=== PATIENT | male | born 1960 | race Two or more races ===

== ENCOUNTER 2017-12-11 09:40 | Emergency (ER) | payer OTHER ==
[2017-12-11 10:49] LABS: INFLUENZA A PATIENT NEGATIVE (NEGATIVE); INFLUENZA B PATIENT NEGATIVE (NEGATIVE); OBC FLU VALID
== END 2017-12-11 11:33 | disposition home or self-care (01) ==
LOC: ER 09:40
DX: R50.9 Fever, unspecified (principal); R05 Cough; J34.89 Other specified disorders of nose and nasal sinuses; J02.9 Acute pharyngitis, unspecified
CPT/HCPCS: 71046; 87804; 87804-59; 99285-25

== ENCOUNTER 2020-03-04 12:03 | Emergency (ER) | payer BC ==
[~2020-03-04] VITALS: Ht 162.6 cm; Wt 68.0 kg
[~2020-03-04 12:03] MED LIST: GLYB1.252 PO; INSU100V8 SQ; METF500T PO; OSEL75CA PO; PANT40TA77 PO
[2020-03-04 12:17] VITALS: BP 135/89
[2020-03-04] MEDS ORDERED: IV NORMAL SALINE 1000ML BAG 1,000 ML IV ONE (12:30)
[2020-03-04] MEDS ORDERED: POLY10DR3 EACHEYE (12:31)
--- NOTE | 2020-03-04 12:32 | PHYS DOC ---
Past Medical History Past Medical History: Hypertension Past Surgical History: No Surgical History Smoking Status: Never Smoker Alcohol Use: None Drug Use: None General Adult EDM: Chief Complaint: EYE PROBLEMS HPI: HPI: Patient is a 59 year old male who presents with for the last 3 days eye redness and itching with white, yellow discharge. No changes in vision, fever, nausea, vomiting, headache. Patient states that started in the left eye and then went to the right eye. Review of Systems: Review of Systems: HENT: Denies nasal congestion or sore throat. Bilateral red eyes with discharge and itching. [] Heart Score: Risk Factors: Risk Factors: DM, Current or recent (<one month) smoker, HTN, HLP, family history of CAD, obesity. Risk Scores: Score 0 - 3: 2.5% MACE over next 6 weeks - Discharge Home Score 4 - 6: 20.3% MACE over next 6 weeks - Admit for Clinical Observation Score 7 - 10: 72.7% MACE over next 6 weeks - Early Invasive Strategies Current Medications: Current Medications Medications (Trade) Dose Ordered Sig/Otoniel Start Time Stop Time Status Last Admin Dose Admin Sodium Chloride 1,000 ml @ 1,000 mls/hr 1X ONCE 03/04/20 12:30 03/04/20 13:29 UNV Allergies: Allergies: Allergies Coded Allergies Type Severity Reaction Last Updated Verified No Known Drug Allergies 06/22/19 No Physical Exam: PE: Constitutional: Well developed, well nourished, no acute distress, non-toxic appearance. [] HENT: Normocephalic, atraumatic, bilateral external ears normal, oropharynx moist, no oral exudates, nose normal. [] Eyes: PERRLA, EOMI, conjunctiva redness, no discharge. [] Neck: Normal range of motion, no tenderness, supple, no stridor. [] Cardiovascular:Heart rate regular rhythm, no murmur [] Lungs & Thorax: Bilateral breath sounds clear to auscultation [] Abdomen: Bowel sounds normal, soft, no tenderness, no masses, no pulsatile masses. [] Skin: Warm, dry, no erythema, no rash. [] Back: No tenderness, no CVA tenderness. [] Extremities: No tenderness, no cyanosis, no clubbing, ROM intact, no edema. [] Neurologic: Alert and oriented X 3, normal motor function, normal sensory function, no focal deficits noted. [] Psychologic: Affect normal, judgement normal, mood normal. [] EKG: EKG: [] Radiology/Procedures: Radiology/Procedures: [] Course & Med Decision Making: Course & Med Decision Making Pertinent Labs and Imaging studies reviewed. (See chart for details) Bilateral redness of the conjunctiva. PERRLA. No vision loss. No discharge seen at this time but patient states that he cleaned all the discharge off of his eyes before coming. Alert and oriented. Speaks in full clear sentences. Denies any pain at this time. States his eyes are just itchy and have discharge. Denies any injury to the eyes or getting anything in his eyes. No pain with movement of the eyes. [] Dragon Disclaimer: Dragon Disclaimer: This electronic medical record was generated, in whole or in part, using a voice recognition dictation system. Departure Departure Impression: Primary Impression: Conjunctivitis Qualified Codes: H10.33 - Unspecified acute conjunctivitis, bilateral Disposition: HOME, SELF-CARE Condition: STABLE Referrals: NO PCP (PCP) Patient Instructions: Conjunctivitis (Viral and Bacterial) Additional Instructions: Use eye drops as prescribed. Remember this can be very contagious. Wash your hands frequently and do not touch the tip of medication to your eyes. Scripts Polymyxin B Sulf/Trimethoprim (POLYMYXIN B-TMP EYE DROPS) 10 Ml Drops 1 DROP EACHEYE QID for 7 Days, #10 ML 0 Refills Prov: JUAN PRETTY APRN 03/04/20 JUAN PRETTY APRN March 04, 2020 12:32
== END 2020-03-04 12:38 | disposition home or self-care (01) ==
LOC: ER 12:03
DX: H10.33 Unspecified acute conjunctivitis, bilateral (principal); R11.2 Nausea with vomiting, unspecified; R50.9 Fever, unspecified; L29.9 Pruritus, unspecified; I10 Essential (primary) hypertension
CPT/HCPCS: 99283

== ENCOUNTER 2020-03-07 02:47 | Emergency (ER) | payer BC ==
[~2020-03-07] VITALS: Ht 154.9 cm; Wt 68.0 kg
[~2020-03-07 02:47] MED LIST changes: +POLY10DR3 EACHEYE
[2020-03-07 02:58] VITALS: BP 154/89
[2020-03-07] MEDS ORDERED: TETRACAINE 0.5% OPHTH SOLUTION 4ML BOTTLE. ONE (03:12)
[2020-03-07] MEDS ORDERED: ERYTHROMYCIN 0.5% OPHTH OINTMENT 1GM TUBE. ONE (03:15)
--- NOTE | 2020-03-07 03:18 | PHYS DOC ---
Past Medical History Past Medical History: Diabetes-Type II, Hypertension Past Surgical History: No Surgical History Smoking Status: Never Smoker Alcohol Use: None Drug Use: None General Adult EDM: Chief Complaint: EYE PROBLEMS HPI: HPI: Patient is a 59-year-old Yi male who presents with eye irritation. He states he was seen a few days ago started on antibiotic drops for left eye redness now both are bothering him. He states that it feels like there is something in his left eye. He denies any loss of visual acuity. [] Review of Systems: Review of Systems: Constitutional: Denies fever or chills. [] Eyes: Per HPI. [] HENT: Denies nasal congestion or sore throat. [] Respiratory: Denies cough or shortness of breath. [] Cardiovascular: Denies chest pain or edema. [] GI: Denies abdominal pain, nausea, vomiting, bloody stools or diarrhea. [] : Denies dysuria. [] Musculoskeletal: Denies back pain or joint pain. [] Integument: Denies rash. [] Neurologic: Denies headache, focal weakness or sensory changes. [] Endocrine: Denies polyuria or polydipsia. [] Lymphatic: Denies swollen glands. [] Psychiatric: Denies depression or anxiety. [] Heart Score: Risk Factors: Risk Factors: DM, Current or recent (<one month) smoker, HTN, HLP, family history of CAD, obesity. Risk Scores: Score 0 - 3: 2.5% MACE over next 6 weeks - Discharge Home Score 4 - 6: 20.3% MACE over next 6 weeks - Admit for Clinical Observation Score 7 - 10: 72.7% MACE over next 6 weeks - Early Invasive Strategies Current Medications: Current Medications Medications (Trade) Dose Ordered Sig/Otoniel Start Time Stop Time Status Last Admin Dose Admin Erythromycin (Romycin) 1 inch STK-MED ONCE 03/07/20 03:15 03/07/20 03:15 DC Tetracaine HCl (Tetracaine) 40 drop STK-MED ONCE 03/07/20 03:12 03/07/20 03:13 DC Allergies: Allergies: Allergies Coded Allergies Type Severity Reaction Last Updated Verified No Known Drug Allergies 06/22/19 No Physical Exam: PE: Constitutional: Well developed, well nourished, no acute distress, non-toxic appearance. [] HENT: Normocephalic, atraumatic, bilateral external ears normal, oropharynx moist, no oral exudates, nose normal. [] Eyes: Both eyes are injected left greater than right no pain with ocular compression in either eye.. [] Neck: Normal range of motion, no tenderness, supple, no stridor. [] Cardiovascular:Heart rate regular rhythm, no murmur [] Neurologic: Alert and oriented X 3, normal motor function, normal sensory function, no focal deficits noted. [] Psychologic: Anxious l. [] Current Patient Data: Vital Signs: Vital Signs Date Time Temp Pulse Resp B/P (MAP) Pulse Ox O2 Delivery O2 Flow Rate FiO2 03/07/20 02:58 97.4 85 16 154/89 (110) 99 Room Air 97.4 EKG: EKG: [] Radiology/Procedures: Radiology/Procedures: [] Course & Med Decision Making: Course & Med Decision Making Pertinent Labs and Imaging studies reviewed. (See chart for details) [] Dragon Disclaimer: Dragon Disclaimer: This electronic medical record was generated, in whole or in part, using a voice recognition dictation system. Departure Departure Impression: Primary Impression: Conjunctivitis Qualified Codes: H10.33 - Unspecified acute conjunctivitis, bilateral Disposition: HOME, SELF-CARE Condition: STABLE Referrals: NO PCP (PCP) Patient Instructions: Allergic Conjunctivitis Scripts Naphazoline Hcl/Pheniramine (NAPHCON-A EYE DROPS) 15 Ml Drops 15 ML OU Q8HRS for conjunctivitis for 5 Days, #2 DROP Prov: LILY ROGEL DO 03/07/20 LILY ROGEL DO March 07, 2020 03:18
[2020-03-07] MEDS ORDERED: NAPH15DR60 OU (03:25)
[2020-03-07] MEDS ORDERED: TETRACAINE 0.5% OPHTH SOLUTION 4ML BOTTLE. OS ONE (03:30)
[2020-03-07] MEDS ORDERED: ERYTHROMYCIN 0.5% OPHTH OINTMENT 1GM TUBE. OS ONE (03:30)
== END 2020-03-07 03:30 | disposition home or self-care (01) ==
LOC: ER 02:47
DX: H10.33 Unspecified acute conjunctivitis, bilateral (principal); E11.9 Type 2 diabetes mellitus without complications; I10 Essential (primary) hypertension
CPT/HCPCS: 99283

== ENCOUNTER 2020-03-13 12:40 | Emergency (ER) | payer BC ==
[~2020-03-13] VITALS: Ht 165.1 cm; Wt 68.2 kg
[~2020-03-13 12:40] MED LIST changes: +NAPH15DR60 OU
[2020-03-13 12:42] VITALS: BP 123/77
[2020-03-13] MEDS ORDERED: KETO5DRO4 EACHEYE (13:14)
[2020-03-13] MEDS ORDERED: OFLO5DRO7 EACHEYE (13:14)
--- NOTE | 2020-03-13 13:15 | PHYS DOC ---
Past Medical History Past Medical History: Diabetes-Type II, Hypertension Past Surgical History: No Surgical History Smoking Status: Never Smoker Alcohol Use: None Drug Use: None General Adult EDM: Chief Complaint: EYE PROBLEMS HPI: HPI: Patient is a 59 year old male with history of diabetes type 2, hypertension, who presents to the ED today complaining of bilateral eye redness with clear drainage, symptoms began 1 month ago. Patient reports this is his third visit in the ED. He states he has been tried on 2 different antibiotics with no relief. Patient denies any vision loss. 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 Review of Systems: Review of Systems: Constitutional: Denies fever or chills. [] Eyes: Reports bilateral eye redness. Denies change in visual acuity. [] HENT: Denies nasal congestion or sore throat. [] Respiratory: Reports cough, denies shortness of breath. [] Cardiovascular: Denies chest pain or edema. [] GI: Denies abdominal pain, nausea, vomiting, bloody stools or diarrhea. [] : Denies dysuria. [] Musculoskeletal: Denies back pain or joint pain. [] Integument: Denies rash. [] Neurologic: Denies headache, focal weakness or sensory changes. [] Psychiatric: Denies depression or anxiety. [] Heart Score: Risk Factors: Risk Factors: DM, Current or recent (<one month) smoker, HTN, HLP, family history of CAD, obesity. Risk Scores: Score 0 - 3: 2.5% MACE over next 6 weeks - Discharge Home Score 4 - 6: 20.3% MACE over next 6 weeks - Admit for Clinical Observation Score 7 - 10: 72.7% MACE over next 6 weeks - Early Invasive Strategies Allergies: Allergies: Allergies Coded Allergies Type Severity Reaction Last Updated Verified No Known Drug Allergies 06/22/19 No Physical Exam: PE: Constitutional: Well developed, well nourished, no acute distress, non-toxic appearance. [] HENT: Normocephalic, atraumatic, bilateral external ears normal, oropharynx moist, no oral exudates, nose normal. [] Eyes: PERRLA, EOMI, bilateral conjunctiva mildly injected left worse than right. Neck: Normal range of motion, no tenderness, supple, no stridor. [] Cardiovascular:Heart rate regular rhythm, no murmur [] Lungs & Thorax: Patient noted for dry cough. Bilateral breath sounds clear to auscultation [] Abdomen: Bowel sounds normal, soft, no tenderness, no masses, no pulsatile masses. [] Skin: Warm, dry, no erythema, no rash. [] Back: No tenderness, no CVA tenderness. [] Extremities: No tenderness, no cyanosis, no clubbing, ROM intact, no edema. [] Neurologic: Alert and oriented X 3, normal motor function, normal sensory function, no focal deficits noted. [] Psychologic: Affect normal, judgement normal, mood normal. [] Current Patient Data: Vital Signs: Vital Signs Date Time Temp Pulse Resp B/P (MAP) Pulse Ox O2 Delivery O2 Flow Rate FiO2 03/13/20 12:42 97.6 93 14 123/77 (92) 97 Room Air 97.6 EKG: EKG: [] Radiology/Procedures: Radiology/Procedures: [] Course & Med Decision Making: Course & Med Decision Making Pertinent Labs and Imaging studies reviewed. (See chart for details) This is a 59-year-old male patient presenting to the ED today with bilateral eye redness that is been going on for 1 month. Patient has been treated for conjunctivitis twice in the last month with no improvement. He is noted to have a dry cough. We tested him for COVID19 to rule out possibility of this being COVID 19 eye symptoms. He will be discharged with ofloxacin eyedrops. Also given Zaditor eyedrops. Provided ophthalmology for follow-up. Johnie Disclaimer: Johnie Disclaimer: This electronic medical record was generated, in whole or in part, using a voice recognition dictation system. Departure Departure Impression: Primary Impression: Conjunctivitis Qualified Codes: H10.33 - Unspecified acute conjunctivitis, bilateral Additional Impression: Cough Disposition: 01 HOME, SELF-CARE Condition: STABLE Referrals: NO PCP (PCP) MISAEL FARFAN MD follow up in the next 7 days Patient Instructions: Bacterial Conjunctivitis Additional Instructions: Your COVID 19 test is pending. Please use the new eye medicines as ordered. 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
== END 2020-03-13 13:25 | disposition home or self-care (01) ==
LOC: ER 12:40
DX: H10.33 Unspecified acute conjunctivitis, bilateral (principal); R05 Cough; Z20.828 Contact with and (suspected) exposure to other viral communicable diseases; I10 Essential (primary) hypertension; E11.9 Type 2 diabetes mellitus without complications
CPT/HCPCS: 99283; U0003; 36415